=== PATIENT | female | born 1965 | race Caucasian/White ===

== ENCOUNTER 2019-09-19 17:33 | Inpatient (IN) | payer BC ==
[~2019-09-19] VITALS: Ht 165.1 cm; Wt 94.5 kg
--- NOTE | ~2019-09-19 | OP ---
PATIENT NAME: DASHAWN SAVAGE MEDICAL RECORD: [id number] :69 LOCATION:[id number] ADMISSION DATE:09/19/19 SURGEON: JATINDER ALCARAZ MD DATE OF OPERATION: 09/20/2019 PREOPERATIVE DIAGNOSIS: Acute cholecystitis. POSTOPERATIVE DIAGNOSIS: Acute cholecystitis. PROCEDURE: Laparoscopic cholecystectomy. SURGEON: Jatinder Alcaraz MD REPORT OF PROCEDURE: The patient's abdomen was prepped and draped in sterile fashion. A skin incision was made on the superior aspect of the umbilicus, 0 Vicryls were placed in the fascia bilaterally and the fascia was incised with 15-blade. I then bluntly entered the peritoneal cavity and placed a 12-mm Lennie port. Under direct visualization, a 5 mm trocar was placed in the epigastrium and 2 more 5-mm trocars were placed in the right subcostal region. The gallbladder was grasped and elevated. There was a lot chronic fatty adhesions to the gallbladder. There is also noted to be some inflammatory changes present that appeared more acute. We took down these fatty adhesions using electrocautery and we were eventually able to get down to the gallbladder. The gallbladder itself was soft, but the echols of the wire inflamed. As we dissected down, we were able to visualize the patient's cystic duct. As we continued dissection, we found 2 branches of the cystic artery. These structures were all clipped proximally and distally and ligated in standard fashion. The gallbladder was then taken off the liver bed using electrocautery and placed into the right upper quadrant. Any bleeding from the liver bed was then treated with electrocautery. We irrigated out the right upper quadrant and assured there was no sign of any bleeding or bile leakage. At this point, the ports and insufflation were then removed and the gallbladder was taken out through the umbilicus. The umbilical fascia was closed with interrupted 0 Vicryls times 3. The wounds were then irrigated out with normal saline and infused with 10 mL of 0.25% Marcaine with epinephrine. The skin incisions were all closed with subcutaneous 5-0 Monocryl and dressed appropriately. COMPLICATIONS: None. CONDITION: Stable. ANESTHESIA: General endotracheal and local. BLOOD LOSS: Minimal. TRANSINT:[id number] Voice Confirmation ID: [id number] DOCUMENT ID: [id number] OPERATIVE REPORT [id number] DASHAWN SAVAGE JATINDER ALCARAZ MD CC: ELGIN BREWSTER MD [id number] DICTATION DATE: 09/20/19 1403 SECURITY ROVER: 09/20/192058 DIS IN 09/20/19 [place] [id number] [place] [address]
--- NOTE | 2019-09-19 19:15 | NUR ---
DIRECT ADMIT FROM DR BREWSTER, STATES SUPOST TO SEE SURGON TOMORROW FOR GALLBLADDER SURGERY, ORIENTIATED TO ROOM, IV STARTED X 2 ATTEMPTS LEFT WRIST, NS STARTED AT 100CC/HR ORDERED, SEE SHIFT ASSESSMENT, CALL LIGHT IN REACH
[2019-09-19 20:01] LABS: BASOPHILS 0.2 % (0-2); EOSINOPHILS 2.1 % (0-7); HEMATOCRIT 41.9 % (36.0-48.0); HEMOGLOBIN 14.4 g/dL (12-16); IMMATURE GRANULOCYTES 0.2 % (0-5); LYMPHOCYTES 35.2 % (15-50); MCH 30.7 pg (26.0-34.0); MCHC 34.4 g/dL (31.0-37.0); MCV 89.3 fL (80.0-100.0); MEAN PLATELET VOLUME 10.7 fL (7.4-10.4); MONOCYTES 5.5 % (2-11); NEUTROPHILS 56.8 % (40-80); PLATELET COUNT 294 10x3/uL (130-400); RBC 4.69 10x6/uL (4.00-5.40); RDW 13.5 % (11.5-14.5); WBC 12.8 10x3/uL (4.8-10.8)
[2019-09-19 21:04] LABS: CALC OSMOLALITY 279 mosm/kg (275-300); CALCIUM 9.4 mg/dL (8.5-10.1); CARBON DIOXIDE 23.3 mmol/L (21.0-32.0); CHLORIDE - SERUM 105 mmol/L (98-107); CREATININE - SERUM 0.8 mg/dL (0.6-1.3); GLUCOSE 89 mg/dL (74-106); POTASSIUM - SERUM 4.2 mmol/L (3.5-5.1); SODIUM 141 mmol/L (136-145); UREA NITROGEN 12 mg/dL (7-18); eGFR NON AFRICAN AMERICAN 80 mL/min (90-120)
[2019-09-19 21:11] LABS: ALBUMIN 4.4 g/dL (3.4-5.0); ALKALINE PHOSPHATASE 92 U/L (30-120); ALT (SGPT) 28 U/L (10-68); BILIRUBIN - TOTAL 0.33 mg/dL (0.2-1.3); PROTEIN - SERUM 7.8 g/dL (6.4-8.2)
[2019-09-19] MEDS ORDERED: CYCLOBENZAPRINE10 MG (23:03)
[2019-09-19] MEDS ORDERED: BENADRYL25 MG PO (23:11)
[2019-09-19] MEDS ORDERED: MELATONIN10 M1 PO (23:12)
[2019-09-19 23:19] VITALS: BP 148/92; BMI 34.6
[2019-09-20] VITALS: BP 137/86
[2019-09-20 04:00] VITALS: BP 114/76
[2019-09-20 05:16] LABS: BILIRUBIN NEGATIVE (NEGATIVE); GLUCOSE NEGATIVE (NEGATIVE); KETONE NEGATIVE (NEGATIVE); NITRITE NEGATIVE (NEGATIVE); UROBILINOGEN NORMAL (NORMAL)
[2019-09-20 05:17] LABS: BACTERIA FEW /hpf (NEGATIVE); EPITHELIAL CELLS 0-5 /hpf (0-5); RED CELLS - URINE 0-5 /hpf (0-5); WHITE CELLS - URINE 0-5 /hpf (NEGATIVE)
[2019-09-20 05:45] LABS: BASOPHILS 0.4 % (0-2); EOSINOPHILS 3.5 % (0-7); HEMATOCRIT 39.4 % (36.0-48.0); HEMOGLOBIN 13.2 g/dL (12-16); IMMATURE GRANULOCYTES 0.1 % (0-5); LYMPHOCYTES 39.5 % (15-50); MCH 30.2 pg (26.0-34.0); MCHC 33.5 g/dL (31.0-37.0); MCV 90.2 fL (80.0-100.0); MEAN PLATELET VOLUME 10.4 fL (7.4-10.4); MONOCYTES 7.2 % (2-11); NEUTROPHILS 49.3 % (40-80); PLATELET COUNT 262 10x3/uL (130-400); RBC 4.37 10x6/uL (4.00-5.40); RDW 13.5 % (11.5-14.5)
[2019-09-20 06:01] LABS: APTT 35.3 SECONDS (22.8-39.4); INR 1.05 (0.85-1.17); PROTIME 13.6 SECONDS (11.6-15.0)
[2019-09-20 06:24] LABS: WBC 8.3 10x3/uL (4.8-10.8)
[2019-09-20 06:30] LABS: ALBUMIN 3.6 g/dL (3.4-5.0); ANION GAP 12.7 mmol/L (8-16); BILIRUBIN - TOTAL 0.52 mg/dL (0.2-1.3); CALCIUM 8.6 mg/dL (8.5-10.1); CARBON DIOXIDE 25.1 mmol/L (21.0-32.0); MAGNESIUM - SERUM 1.9 mg/dL (1.8-2.4); PHOSPHOROUS 3.7 mg/dL (2.5-4.9); POTASSIUM - SERUM 3.8 mmol/L (3.5-5.1)
--- NOTE | 2019-09-20 08:04 | NUR ---
RECIEVED REPORT. PATIENT IS RESTING QUIETLY AT THIS TIME.
[2019-09-20 09:28] VITALS: Ht 165.1 cm; Wt 94.5 kg
[2019-09-20 09:42] VITALS: BP 139/88
--- NOTE | 2019-09-20 11:44 | NUR ---
Hippa cleanse done. Surgery called to to preop. at bedside. Consents signed and in chart.
[2019-09-20 13:01] VITALS: BP 164/88
--- NOTE | 2019-09-20 13:14 | NUR ---
PATIENT IS IN SURGERY NOW.
[2019-09-20] MEDS ORDERED: HYDROCODON-ACE1 EA10 PO ×2 (14:05→18:08)
--- NOTE | 2019-09-20 15:14 | NUR ---
PATIENT RETURNED FROM [facility]. VITAL SIGNES 97.4 TEMP, 124/83 B/P, 61 PULSE, 18 RESPIRATIONS, 95%02 ON ROOM AIR. SHE HAS TWO SMALL INCISIONS ON HER ABDOMEN WITH STERI STRIPS. PATIENT DENIES ANY NEEDS AT THIS TIME.
--- NOTE | 2019-09-20 18:45 | NUR ---
PATIENT IS BEING DISCHARGED TONIGHT. SHE IS FEELING BETTER.
--- NOTE | 2019-09-21 06:55 | MORECARE ---
CASE MANAGEMENT DISCHARGE SUMMARY PATIENT: DASHAWN SAVAGE UNIT: [id number] ADM DATE: 09/19/19 AGE: 53 : 69 SEX: F ROOM/BED: D.2224 AUTHOR: NORIS MANCERA PHYSICIAN: REFERRING PHYSICIAN: ELGIN BREWSTER MD DATE OF SERVICE: 09/21/19 Discharge Plan Patient Name: DASHAWN SAVAGE [facility] : 1965 Planned Disposition: Anticipated Discharge Date: Discharge Date: 09/20/2019 Expected LOS: 0 Initial Reviewer: [email or web address] Initial Review Date: 09/21/2019 Generated: 09/21/19 7:54 am Patient Name: DASHAWN SAVAGE Page [id number] at 0655 All edits/amendments must be made on the electronic document DICTATION DATE: 09/21/19 0654 VENDOR REPRESENTATIVES: CECY 09/21/19 0654 RPT#: [id number] DC DATE:09/20/19 STATUS: DIS IN [facility] [address] [place] [address] END OF REPORT
== END 2019-09-20 19:39 | disposition home or self-care (01) | DRG 419 ==
LOC: D.M2 17:33 → D.MS 17:36
PROVIDERS: Internal Medicine Nephrology; Surgery; ADMIT Family Medicine; ATTEND Family Medicine
PROC: 0FT44ZZ Resection of Gallbladder, Percutaneous Endoscopic Approach (ICD-10-PCS; principal; 2019-09-20 11:15)
DX: K80.00 Calculus of gallbladder with acute cholecystitis without obstruction (principal); K82.8 Other specified diseases of gallbladder; K21.9 Gastro-esophageal reflux disease without esophagitis